=== PATIENT | female | born 1950 | race Caucasian/White ===

== ENCOUNTER 2020-12-11 14:50 | Observation (INO) ==
[2020-12-11] MEDS ORDERED: SODIUM CHLORIDE 0.9% 1000ML 1,000 ML IV ONE (15:00)
[2020-12-11] MEDS ORDERED: dilTIAZem HCl 5 MG/ML 5 ML VIAL IV STA ×2 (15:00→15:41)
--- NOTE | 2020-12-11 15:05 | Emergency Department Note ---
Impression & Plan Atrial flutter with rapid ventricular response, Substernal chest pain ED Provider Note Name: PHYLLIS SHARPE Age: 70 Sex: F Arrives Via: Ambulance Informant: Patient, GI Physician ED Provider: Evan De MD Chief Complaint: palpitations Impression: As Per Impressions Above Medical Decision Making: Pleasant 70 yr old female with history AFib which is unclear if Paroxysmal. She stopped her eliquis a few days ago in preparation for Colonoscopy this morning, though has been taking her other medications. Found to be Afib RVR and sent to ED for evaluation from endoscopy. Notes constant SOB which she attributes to her COPD though otherwise asymptomatic. EKG with aflutter RVR variable response. Given 2 rounds IV cardizem and NSS Bolus with improvement in HR, though still at times jumping to 120s. BP stable. While in ED developed some substernal chest pressure. Repeat EKG at that time unremarkable. Given persistent tachy and chest pain, I do feel that hospitalization warranted. Patient comfortable with this plan. Other labs unremarkable. Seems unlikely PE and given other more likely causes I do not feel CT A Chest emergently indicated. Held off on anticoagulation as plan is colonoscopy to be done if rate gets controlled and patient otherwise stable in am. Prior Medical Record and Triage/Nursing Notes reviewed by Me Additional history obtained from GI & Chart Differentials:Premature contractions, electrolyte abnormality, cardiac dysrhythmia, thyroid dysfunction, pulmonary embolism, infection, gastrointestinal, as well as other pathologies. Vital Signs: reviewed and remarkable for tachycardia Interventions: cardizem 10mg iv x 2, nss bolus Labs:Reviewed and remarkable for no significant abnormalities Imaging:See Below EKG:Per My Interpretation: Indication tachycardia: Aflutter RVR 146 bpm, qtc 451. No ischemia, no previous for comparison Cardiac/Tele Monitoring: Cardiac Monitoring: An Order was placed for continuous cardiac monitoring. The monitor shows a rate of 120 with a aflutter RVR rhythm. Consults:Hospitalist Plan: Disposition:Hospitalization. History of Present Illness:70 yr old female arrives for evaluation of afib. Patient notes that she was to have colonoscopy this morning and while at endo suite noted to be afib RVR. She denies any symptoms other than chronic SOB which she relates due to COPD. States unsure when she went in to afib, but that she doesn't thinks she is always in afib. She is on Eliquis usually but stopped this 3 days ago in preoperation for Colonoscopy. She has had no chest pain, syncope, noted palpitations, nausea, vomiting, back pain, rectal bleeding, urinary symptoms, leg swelling, rashes, bleeding/bruising, headache, neck pain nor other symptoms. Did do bowel prep overnight and took her morning medications other than Eliquis. ROS: See above HPI for pertinent positives & negatives. A total of 10 systems reviewed and were otherwise negative. Past Medical History:See Below Past Surgical History:See Below Family History:See Below Social History:See Below Home Medications:See Below Allergies:See Below Vitals:Blood Pressure: 143/106, Pulse 156, RR 16, T 36.4C, O2 98% on RA Physical Exam: GENERAL: Patient is tired appearing and in minimal distress. EYES: No scleral icterus, unremarkable pupils. ENT: Mucous membranes moist, no nasal congestion. NECK: No masses appreciated, nomeningismus, trachea is midline. RESPIRATORY: No dyspnea. Clear to auscultation and equal bilaterally. No wheeze, no rhonchi. CARDIOVASCULAR: Tachy/irregular.No murmurs, rubs, gallops appreciated. GASTROINTESTINAL: Abdomen soft, non-tender, no peritonitis.Bowel sounds positive.No masses appreciated. BACK: No midline tenderness, no CVA tenderness EXTREMITIES: Normal motion all extremities, no cyanosis, no edema. NEUROLOGIC: Alert and oriented, no acute motor or sensory deficits, no focal weakness, cranial nerves grossly intact. SKIN: No rash, no jaundice, no diaphoresis. PSYCH: Appropriate GCS: 15 ED Course: Times/Reassessments: stable, HR improving. Episode Substernal CP which shortly resolved, repeat EKG without ischemia Evan De MD Past Med/Surg History Medical History (Updated 12/12/20 @ 11:36 by Evan De MD) Arthritis COPD (chronic obstructive pulmonary disease) DX 2009 Encounter for pre-operative examination Grief counseling PARENTS BOTH WITHIN LAST YR Heart failure DX 2008 History of atrial flutter History of colon polyps HTN (hypertension) Low back problem ARTHRITIS Sleep apnea CPAP WITHOUT HUMIDIFIER SOB (shortness of breath) on exertion Surgical History History of cardiac cath 2019 - PRIOR TO CATARACT SX, DIDN'T PASS PHYSICAL EXAM - FOUND BLOCKAGE - NO STENT(S) 2009 - DX HEART FAILURE - FOUND BLOCKAGE - NO STENT(S) History of cardioversion History of colonoscopy History of laminectomy CERVICAL - LIMITED ROM History of left cataract surgery Family History Father Family history of esophageal cancer Other Family history of colon cancer Family history of stomach cancer Social History Smoking Status: Never smoker Cigarettes Per Day: 20; Hx Alcohol Use: Yes (I MIGHT HAVE 3 DRINKS A YR) Hx Substance Use: No Preferred Language: Estonian Communication Ability: Effective City Planning Aide Required: No Beliefs That Will Affect Care: None Current Living Situation: Family Current Living Situation Comment: DAUGHTER Feels Safe at Home: Yes Assistive Devices: CPAP and Glasses Allergies Allergies Allergy/AdvReac Type Severity Reaction Status Date / Time bee venom protein (honey bee) Allergy Unknown Anaphylaxis Verified 12/11/20 14:06 Beta-Blockers AdvReac Unknown SLEEPINESS Verified 12/11/20 14:06 (Beta-Adrenergic Bloc fentanyl AdvReac Unknown PROJECTILE Verified 12/11/20 14:06 VOMITING metoprolol AdvReac Unknown SLEEPINESS Verified 12/11/20 14:06 AND WEIGHT GAIN morphine AdvReac Unknown PROJECTILE Verified 12/11/20 14:06 VOMITING Home Meds Home Medications Medication Instructions Recorded Confirmed acetaminophen 500 mg capsule 1,000 mg PO QAM 11/14/20 12/11/20 apixaban 5 mg tablet (Eliquis) 5 mg PO BID 11/14/20 12/11/20 ascorbate calcium (vitamin C) 500 500 mg PO DAILY 11/14/20 12/11/20 mg tablet aspirin 81 mg tablet,delayed 81 mg PO DAILY 11/14/20 12/11/20 release (Adult Aspirin Regimen) atorvastatin 10 mg tablet (Lipitor) 10 mg PO QAM 11/14/20 12/11/20 biotin 10,000 mcg capsule 10,000 mcg PO DAILY 11/14/20 12/11/20 cholecalciferol (vitamin D3) 125 125 mcg PO DAILY 11/14/20 12/11/20 mcg (5,000 unit) capsule furosemide 20 mg tablet 20 mg PO QAM 11/14/20 12/11/20 losartan 100 mg tablet 100 mg PO QAM 11/14/20 12/11/20 multivitamin (Daily Multi-Vitamin) 1 tab PO BID 11/14/20 12/11/20 cetirizine 10 mg capsule (Allergy 10 mg PO QAM 12/04/20 12/11/20 Relief (cetirizine)) diphenhydramine 25 2 tab PO HS 12/04/20 12/11/20 mg-acetaminophen 500 mg tablet (Tylenol PM Extra Strength) epinephrine 0.3 mg/0.3 mL 0.3 mg IM UD PRN 12/04/20 12/11/20 injection, auto-injector fluticasone 250 mcg-salmeterol 50 1 inh INHALATION BID 12/04/20 12/11/20 mcg/dose blistr powdr for inhalation (Advair Diskus) melatonin 1 mg chewable tablet 10 mg PO HS 12/04/20 12/11/20 potassium chloride 10 mEq 10 meq PO QAM 12/04/20 12/11/20 capsule,extended release sodium,potassium,mag sulfates 17.5 177 ml PO UD PRN 12/04/20 12/11/20 gram-3.13 gram-1.6 gram oral soln (Suprep Bowel Prep Kit) diltiazem HCl 120 mg 120 mg PO QAM 12/11/20 12/11/20 capsule,extended release 24 hr Previous Rx's Medication Instructions Recorded albuterol sulfate 90 mcg/actuation 2 inh INHALATION Q4H PRN #8.5 g 11/14/20 aerosol inhaler umeclidinium 62.5 mcg/actuation 1 inh INHALATION DAILY #30 ea 11/14/20 blister powder for inhalation (Incruse Ellipta) Results & Data (ED) Vital Signs Vital Signs - 24 hr 12/11/20 14:55 12/11/20 15:02 12/11/20 15:15 Pulse Rate 132 H 132 H 135 H Pulse Rate [Left] Pulse Rate from SpO2 Sensor 128 H 148 H Pulse Rhythm Regular Pulse Rhythm [Left] Pulse Strength Normal Pulse Strength [Left] Respiratory Rate 19 14 24 Respiratory Effort / Characteristics Non-Labored Respiratory Depth Normal Respiratory Pattern Regular Blood Pressure 143/106 H 143/106 H 157/101 H Blood Pressure [Left Arm] Blood Pressure Mean 118 118 119 Blood Pressure Mean [Left Arm] Blood Pressure Position [Left Arm] Pulse Oximetry 98 97 97 Oxygen Delivery Method Room Air Room Air Room Air Sepsis Recent Fever Within 48 Hours No Sepsis New/Unexplained Change in Mental Status N/A Sepsis Action Taken by Nursing No Action Required 12/11/20 15:25 12/11/20 15:30 12/11/20 15:45 Pulse Rate 93 H 111 H Pulse Rate [Left] 117 H Pulse Rate from SpO2 Sensor 109 H 107 H Pulse Rhythm Pulse Rhythm [Left] Pulse Strength Pulse Strength [Left] Respiratory Rate 24 27 H 17 Respiratory Effort / Characteristics Non-Labored Respiratory Depth Normal Respiratory Pattern Regular Blood Pressure 172/125 H Blood Pressure [Left Arm] 150/99 H Blood Pressure Mean 140 Blood Pressure Mean [Left Arm] 116 Blood Pressure Position [Left Arm] Pulse Oximetry 96 96 98 Oxygen Delivery Method Room Air Room Air Room Air Sepsis Recent Fever Within 48 Hours Sepsis New/Unexplained Change in Mental Status Sepsis Action Taken by Nursing 12/11/20 15:49 12/11/20 16:00 12/11/20 16:15 Pulse Rate 89 96 H Pulse Rate [Left] 100 H Pulse Rate from SpO2 Sensor 90 107 H Pulse Rhythm Pulse Rhythm [Left] Regular Pulse Strength Pulse Strength [Left] Normal Respiratory Rate 19 14 15 Respiratory Effort / Characteristics Non-Labored Respiratory Depth Normal Respiratory Pattern Regular Blood Pressure 149/88 H Blood Pressure [Left Arm] 131/98 Blood Pressure Mean 108 Blood Pressure Mean [Left Arm] 109 Blood Pressure Position [Left Arm] Lying Pulse Oximetry 99 98 97 Oxygen Delivery Method Room Air Room Air Room Air Sepsis Recent Fever Within 48 Hours Sepsis New/Unexplained Change in Mental Status Sepsis Action Taken by Nursing 12/11/20 16:30 12/11/20 16:45 12/11/20 17:00 Pulse Rate 109 H 122 H 116 H Pulse Rate [Left] Pulse Rate from SpO2 Sensor 112 H 128 H 116 H Pulse Rhythm Pulse Rhythm [Left] Pulse Strength Pulse Strength [Left] Respiratory Rate 16 21 19 Respiratory Effort / Characteristics Respiratory Depth Respiratory Pattern Blood Pressure 163/104 H 183/77 H Blood Pressure [Left Arm] Blood Pressure Mean 123 112 Blood Pressure Mean [Left Arm] Blood Pressure Position [Left Arm] Pulse Oximetry 98 98 96 Oxygen Delivery Method Room Air Room Air Sepsis Recent Fever Within 48 Hours Sepsis New/Unexplained Change in Mental Status Sepsis Action Taken by Nursing 12/11/20 17:11 12/11/20 17:15 12/11/20 17:30 Pulse Rate 128 H 124 H Pulse Rate [Left] 124 H Pulse Rate from SpO2 Sensor Pulse Rhythm Pulse Rhythm [Left] Pulse Strength Pulse Strength [Left] Respiratory Rate 15 22 17 Respiratory Effort / Characteristics Non-Labored Spontaneous Respiratory Depth Normal Respiratory Pattern Blood Pressure Blood Pressure [Left Arm] 160/111 H Blood Pressure Mean Blood Pressure Mean [Left Arm] 127 Blood Pressure Position [Left Arm] Pulse Oximetry 93 99 Oxygen Delivery Method Room Air Sepsis Recent Fever Within 48 Hours Sepsis New/Unexplained Change in Mental Status Sepsis Action Taken by Nursing Laboratory Data Result diagrams: 12/12/20 05:42 12/12/20 05:42 Administered Medications Acetaminophen (Acetaminophen 500 Mg Tab) 1,000 mg PO [facility] Stop: 01/11/21 08:59 Last Admin: 12/12/20 09:28 Dose: Not Given Documented by: [id number] Atorvastatin Calcium (Atorvastatin 10 Mg Tab) [facility] Stop: 01/11/21 08:59 Last Admin: 12/12/20 09:26 Dose: 10 mg Documented by: [id number] Cetirizine HCl (Cetirizine Hcl 10 Mg Tablet) 10 mg PO [facility] Stop: 01/11/21 08:59 Last Admin: 12/12/20 09:26 Dose: 10 mg Documented by: [id number] Fluticasone/Vilanterol (Fluticasone/Vilanterol 100/25mcg 14 Puffs/Inhaler) 1 puffs INH DAILY [facility]; Protocol Stop: 01/11/21 08:59 Last Admin: 12/12/20 09:31 Dose: Not Given Documented by: [id number] Losartan Potassium (Losartan Potassium 50 Mg Tab) [facility] [place] Stop: 01/11/21 08:59 Last Admin: 12/12/20 09:27 Dose: 100 mg Documented by: [id number] Umeclidinium Rawlings (Umeclidinium Rawlings 62.5mcg/Blister 7 Puffs/Inhaler) 1 puffs INH DAILY [facility] Stop: 01/11/21 08:59 Last Admin: 12/12/20 09:43 Dose: 1 puffs Documented by: [id number] Discontinued Medications Diltiazem HCl (Diltiazem Hcl 5 Mg/Ml 5 Ml Vial) 10 mg IV NOW STA Stop: 12/11/20 15:01 Last Admin: 12/11/20 15:15 Dose: 10 mg Documented by: [id number] Cosigned by: [id number] Diltiazem HCl (Diltiazem Hcl 5 Mg/Ml 5 Ml Vial) 10 mg IV NOW STA Stop: 12/11/20 15:42 Last Admin: 12/11/20 15:44 Dose: 10 mg Documented by: [id number] Cosigned by: [id number] Diltiazem HCl (Diltiazem Hcl 60 Mg Tab) 60 mg PO ONCE ONE Stop: 12/11/20 17:21 Last Admin: 12/11/20 18:06 Dose: 60 mg Documented by: [id number] Diltiazem HCl (Diltiazem Hcl 60 Mg Tab) 60 mg PO Q6H [facility] Stop: 01/11/21 00:00 Last Admin: 12/12/20 06:02 Dose: 60 mg Documented by: [id number] Admin: 12/12/20 00:13 Dose: 60 mg Documented by: [id number] Diltiazem HCl (Diltiazem Hcl 120 Mg Capcr) 120 mg PO QAM [facility] Stop: 01/11/21 08:59 Last Admin: 12/12/20 09:34 Dose: 120 mg Documented by: [id number] Diltiazem HCl (Diltiazem Hcl 180 Mg Capcr) 180 mg PO 0945 ONE Stop: 12/12/20 09:46 Last Admin: 12/12/20 09:46 Dose: 180 mg Documented by: [id number] Sodium Chloride (Nss 1000ml) 1,000 mls @ 999 mls/hr IV .Q1H1M ONE Stop: 12/11/20 16:00 Last Infusion: 12/11/20 16:12 Dose: 0 mls/hr Documented by: [id number] Admin: 12/11/20 15:10 Dose: 999 mls/hr Documented by: [id number] Lactated Ringer's (Lr) 1,000 mls @ 100 mls/hr IV .Q10H ONE Stop: 12/12/20 09:59 Last Infusion: 12/12/20 11:02 Dose: 0 mls/hr Documented by: [id number] Admin: 12/12/20 00:15 Dose: 100 mls/hr Documented by: [id number] Nitroglycerin (Nitroglycerin Sl 0.4 Mg/Tab Tab) 0.4 mg SL NOW STA Stop: 12/11/20 16:56 Last Admin: 12/11/20 17:11 Dose: 0.4 mg Documented by: [id number] Discharge Plan Visit Data Chief Complaint: Tachycardia Stated Complaint: TACHYCARDIA Discharge Problem: Atrial flutter with rapid ventricular response, Substernal chest pain Patient Disposition: Admitted As Inpatient Discharge Instructions Interventions: ED Discharge Assessment Last Done: 12/11/20 22:25
[2020-12-11 15:26] LABS: Basophils # (auto) 0.05 K/uL (0-0.2); Basophils % (auto) 0.7 %; Eosinophils # (auto) 0.19 K/uL (0-0.5); Eosinophils % (auto) 2.5 %; Hemoglobin 15.4 g/dL (12.0-16.0); Immature Granulocytes # (auto) 0.01 K/uL (0.00-0.02); Immature Granulocytes % (auto) 0.1 %; Lymphocytes # (auto) 2.46 K/uL (1.2-3.4); Lymphocytes % (auto) 32.7 %; Mean Corpuscular Hemoglobin 30.4 pg (25-34); Mean Corpuscular Hgb Conc 32.8 g/dL (32-36); Mean Corpuscular Volume 92.9 fL (80-100); Mean Platelet Volume 10.9 fL (7.4-10.4); Monocytes # (auto) 0.48 K/uL (0.11-0.59); Monocytes % (auto) 6.4 %; Neutrophils # (auto) 4.33 K/uL (1.4-6.5); Neutrophils % (auto) 57.6 %; Platelet Count 268 K/uL (130-400); RDW Coefficient of Variation 13.1 % (11.5-14.5); RDW Standard Deviation 44.4 fL (36.4-46.3); Red Blood Count 5.06 M/uL (4.2-5.4); White Blood Count 7.52 K/uL (4.8-10.8)
[2020-12-11 15:43] LABS: INR 1.1 (0.9-1.1)
[2020-12-11 15:45] LABS: BUN Creatinine Ratio 15.3 (10-20); Blood Urea Nitrogen 12 mg/dl (7-18); Calcium 9.6 mg/dl (8.5-10.1); Carbon Dioxide 26 mmol/L (21-32); Chloride 105 mmol/L (98-107); Creatinine Clr Calc Pharmacy 82.8 ml/min; Est GFR (Non-African American) 77.7 ml/min; Glucose 106 mg/dl (70-99); Magnesium 2.6 mg/dl (1.8-2.4); Sodium 138 mmol/L (136-145)
--- NOTE | 2020-12-11 15:47 | XRay Report ---
XR chest 1V portable HISTORY: 70 years-old Female afib acute atrial fibrillation COMPARISON: Chest CT 10/14/2020 TECHNIQUE: Portable AP view of the chest FINDINGS: Cardiac silhouette is mildly enlarged. Calcified plaque of the thoracic aorta. Suggestion of mild emp hysema. Mild chronic interstitial coarsening. No pneumothorax, pleural effusion, airspace consolidati on or overt pulmonary edema. No acute fracture. Left shoulder rotator cuff calcific tendinosis. Degen erative changes of the shoulders and spine. IMPRESSION: No acute process. ACT 112: Negative or not required by law. The above report was generated using voice recognition software. It may contain grammatical, syntax o r spelling errors. Electronically signed by: Ilya Sparks M.D. 12/11/2020 3:45 PM
[2020-12-11 15:50] LABS: Troponin I < 0.015 ng/ml (0-0.045)
[2020-12-11] MEDS ORDERED: NITROGLYCERIN SL 0.4 MG/TAB TAB SL STA (16:55)
[2020-12-11] MEDS ORDERED: dilTIAZem HCl 60 MG TAB PO ONE (17:20)
--- NOTE | 2020-12-11 17:51 | History & Physical Report ---
Date of Service December 11, 2020 Assessment & Plan (1) Atrial flutter: Plan: Afib/Aflutter- predominantly atrial flutter at this time, no ectopy- acute RVR- ECG in September 27 was NSR - RVR secondary to hypovolemia with bowel prep ? - Responded to IV Diltiazem - Continue Diltiazem PO 120mg XR- 60mg IR Cardizem x1 now - PRN Dilt for HR >120 on floor - Mag 2.4 K 4.0 - Continue Apixaban following colonoscopy- if unable to perform colonoscopy, restart in AM - Apixaban recently added Sep/Oct time frame (2) Chest discomfort: Plan: Chest pressure- unsure if related to patricia or not - angina vs. anxiety vs. topical chest pain - relieved with 1 NTG SL - Follow Troponin I and ECGs (3) CAD (coronary artery disease): Plan: 30-40% CX, 20% prox LAD, 10-15% luminal change to left main - Continue Dilt- previous intolerance to BB - Continue ASA - Continue Atorvastatin 10mg (4) Heart failure: Plan: HFpEF- Grade I diastolic dysfunction - Hold lasix at this time- LR overnight - restart when euvolemic - As above - ECHO 10/28- EF 55%, Mild cocentric LV, no RWMA (5) COPD with emphysema: Plan: COPD B/C - continue albuterol and Incruse - PFTs not available- will be performed at next pulm visit from recent Note in Nov 27 (6) HLD (hyperlipidemia): Plan: As above (7) DIANDRA (obstructive sleep apnea): Plan: Does not wear CPAP as her machine was recalled - defers use here (8) Morbid obesity: Plan: Would benefit from weight loss to reduce pulmonary and cardiac morbidity in the senior care. BMI 45 History of Present Illness Primary Care Provider: Amy Giordano MD 70 YOF with past medical history of: HTN, CHF, COPD, CAD with cardiac cath (30- 40% CX, 20% prox LAD, 10-15% luminal change to left main, LVEDP 12mm), aflutter/afib with cardioversion in 2008/2012, with septal ablation in 2014), manic/depressive episode 2001, COPD. Patient was recently started on Eliquis and Cardizem for her Afib/flutter. She has recently transitioned her care to this area to include her PCP([facility]), Cardiology ([facility]), and Pulmonary [facility]. Patient was coming in today for routine Colonoscopy following bowel prep overnight and holding her Eliquis for 72 hours. Upon check in she was noted to have HR 150s-170s she was then referred to the EMD. In the EMD she had an ECG done and CXR nd routine labs to include Troponin I. Her troponin I was negative and her electrolytes including MG are within acceptable cardiac ranges. She received 1 liter of saline and Diltiazem 10mg IV x2 with decrease in her HR to 90-110s. Upon my evaluation she was having some substernal tightness in her chest- she was unsure if this was pressure or her patricia so she received 1 nitroglycerin SL, she was also given 60mg of oral Cardizem immediate release for HR 110-120s. Patient also endorses that she is anxious about getting her colonoscopy and helping her daughter at home with medical diagnoses. Patient will be admitted for rate control, hemodynamic monitoring, trending of ECG and Troponin I, clears until midnight and re-attempt at colonoscopy tomorrow pending stability overnight. Cardiology consulted for further evaluation and assistance if needed for her rate control and chest tightness. Her COVID test on admission: NEGATIVE Allergies Allergy/AdvReac Type Severity Reaction Status Date / Time bee venom protein (honey bee) Allergy Unknown Anaphylaxis Verified 12/11/20 14:06 Beta-Blockers AdvReac Unknown SLEEPINESS Verified 12/11/20 14:06 (Beta-Adrenergic Bloc fentanyl AdvReac Unknown PROJECTILE Verified 12/11/20 14:06 VOMITING metoprolol AdvReac Unknown SLEEPINESS Verified 12/11/20 14:06 AND WEIGHT GAIN morphine AdvReac Unknown PROJECTILE Verified 12/11/20 14:06 VOMITING Home Medications Medication Instructions Recorded Confirmed Type acetaminophen 500 mg capsule 1,000 mg PO QAM 11/14/20 12/11/20 History albuterol sulfate 90 mcg/actuation 2 inh INHALATION Q4H PRN #8.5 g 11/14/20 12/11/20 Rx aerosol inhaler apixaban 5 mg tablet (Eliquis) 5 mg PO BID 11/14/20 12/11/20 History ascorbate calcium (vitamin C) 500 500 mg PO DAILY 11/14/20 12/11/20 History mg tablet aspirin 81 mg tablet,delayed 81 mg PO DAILY 11/14/20 12/11/20 History release (Adult Aspirin Regimen) atorvastatin 10 mg tablet (Lipitor) 10 mg PO QAM 11/14/20 12/11/20 History biotin 10,000 mcg capsule 10,000 mcg PO DAILY 11/14/20 12/11/20 History cholecalciferol (vitamin D3) 125 125 mcg PO DAILY 11/14/20 12/11/20 History mcg (5,000 unit) capsule furosemide 20 mg tablet 20 mg PO QAM 11/14/20 12/11/20 History losartan 100 mg tablet 100 mg PO QAM 11/14/20 12/11/20 History multivitamin (Daily Multi-Vitamin) 1 tab PO BID 11/14/20 12/11/20 History umeclidinium 62.5 mcg/actuation 1 inh INHALATION DAILY #30 ea 11/14/20 12/11/20 Rx blister powder for inhalation (Incruse Ellipta) cetirizine 10 mg capsule (Allergy 10 mg PO QAM 12/04/20 12/11/20 History Relief (cetirizine)) diphenhydramine 25 2 tab PO HS 12/04/20 12/11/20 History mg-acetaminophen 500 mg tablet (Tylenol PM Extra Strength) epinephrine 0.3 mg/0.3 mL 0.3 mg IM UD PRN 12/04/20 12/11/20 History injection, auto-injector fluticasone 250 mcg-salmeterol 50 1 inh INHALATION BID 12/04/20 12/11/20 History mcg/dose blistr powdr for inhalation (Advair Diskus) melatonin 1 mg chewable tablet 10 mg PO HS 12/04/20 12/11/20 History potassium chloride 10 mEq 10 meq PO QAM 12/04/20 12/11/20 History capsule,extended release sodium,potassium,mag sulfates 17.5 177 ml PO UD PRN 12/04/20 12/11/20 History gram-3.13 gram-1.6 gram oral soln (Suprep Bowel Prep Kit) diltiazem HCl 120 mg 120 mg PO QAM 12/11/20 12/11/20 History capsule,extended release 24 hr Past Med/Surg History Medical History Arthritis COPD (chronic obstructive pulmonary disease) DX 2008 Grief counseling PARENTS BOTH WITHIN LAST YR Heart failure DX 2008 History of atrial flutter History of colon polyps HTN (hypertension) Low back problem ARTHRITIS Sleep apnea CPAP WITHOUT HUMIDIFIER SOB (shortness of breath) on exertion Surgical History History of cardiac cath 2019 - PRIOR TO CATARACT SX, DIDN'T PASS PHYSICAL EXAM - FOUND BLOCKAGE - NO STENT(S) 2008 - DX HEART FAILURE - FOUND BLOCKAGE - NO STENT(S) History of cardioversion History of colonoscopy History of laminectomy CERVICAL - LIMITED ROM History of left cataract surgery Family History Father Family history of esophageal cancer Other Family history of colon cancer Family history of stomach cancer Social History Smoking Status: Never smoker Cigarettes Per Day: 20; Hx Alcohol Use: Yes (I MIGHT HAVE 3 DRINKS A YR) Preferred Language: Azeri Communication Ability: Effective Tea Room Manager Required: No Beliefs That Will Affect Care: None Current Living Situation Comment: DAUGHTER Feels Safe at Home: Yes Assistive Devices: CPAP and Glasses Review of Systems Review of Systems: REVIEW OF SYSTEMS: Constitutional: No fever, sweats or chills Eyes: No diplopia, no worsening or blurred vision ENT: normal hearing, no trouble swallowing Respiratory: (+) dyspnea on exertion, No cough, sputum, dyspnea at rest or orthopnea Cardiovascular: (+) tightness, NO chest pain, palpitations Abdomen: No pain, nausea, vomiting, diarrhea or constipation Musculoskeletal: No joint pain, calf pain, swelling Neurologic: No weakness, numbness/tingling, or balance problems Psychiatric: (+) anxiety or depression Skin: No rash or itch Physical Exam Physical Exam: PHYSICAL EXAM: General: awake, alert, no apparent distress Head: Normocephalic, atraumatic ENT: PERRL, EOMI, no pharyngeal exudate, mucous membranes moist Neuro: AAO x 3, speech clear and appropriate, strength intact bilaterally 5/5, sensation intact and equal all extremities and dermatomes, no pronator drift Chest: equal rise and fall of the chest, no accessory muscle use, no heaves or thrills, decreased in bases, on room air, Cardiac: chest tightness not reproducible substernal, no change with inspiration or with movement, irregular rate and rhythm, telemetry reviewed- aflutter, skin warm dry, cap refill <3 seconds, peripheral pulses +2 no JVD, no murmur, no edema GI: NABS x 4 quadrants, soft, nontender to palpation, no rebound, guarding or tenderness : Spontaneously voiding, no pain, no CVA tenderness, Extremities: Normal inspection, no peripheral edema or erythema, calfs nontender to palpation Psych: Normal mood and affect Skin: no rash or erythema Results & Data Results & Data ([facility]) Vital Signs (Past 12 Hours) Vital Signs Pulse Pulse Resp BP BP Pulse Ox 12/11/20 17:11 124 H 15 160/111 H 93 12/11/20 16:45 122 H 21 183/77 H 98 12/11/20 16:30 109 H 16 163/104 H 98 12/11/20 16:15 96 H 15 97 12/11/20 16:00 89 14 149/88 H 98 12/11/20 15:49 100 H 19 131/98 99 12/11/20 15:45 111 H 17 172/125 H 98 12/11/20 15:30 93 H 27 H 96 12/11/20 15:25 117 H 24 150/99 H 96 12/11/20 15:15 135 H 24 157/101 H 97 12/11/20 15:02 132 H 14 143/106 H 97 12/11/20 14:55 132 H 19 143/106 H 98 Laboratory Results Abnormal lab results 12/11/20 12/11/20 Range/Units Unknown Unknown MPV 10.9 H (7.4-10.4) fL Glucose 106 H (70-99) mg/dl Magnesium 2.6 H (1.8-2.4) mg/dl Diagnostic Findings Chest X-Ray 12/11/20 15:01 XR chest 1V portable HISTORY: 70 years-old Female afib acute atrial fibrillation COMPARISON: Chest CT 10/14/2020 TECHNIQUE: Portable AP view of the chest FINDINGS: Cardiac silhouette is mildly enlarged. Calcified plaque of the thoracic aorta. Suggestion of mild emphysema. Mild chronic interstitial coarsening. No p neumothorax, pleural effusion, airspace consolidation or overt pulmonary edema. No acute fracture. Left shoulder rotator cuff calcific tendinosis. Degenerative changes of the shoulders and spine. IMPRESSION: No acute process. ACT 112: Negative or not required by law. The above report was generated using voice recognition software. It may contain grammatical, syntax or spelling errors. Electronically signed by: Ilya Sparks M.D. 12/11/2020 3:45 PM Medications Administered Home Medications acetaminophen 500 mg capsule 1,000 mg PO QAM 11/14/20 [History Confirmed 12/11/20] albuterol sulfate 90 mcg/actuation aerosol inhaler 2 inh INHALATION Q4H PRN #8.5 g 11/14/20 [Rx Confirmed 12/11/20] apixaban 5 mg tablet (Eliquis) 5 mg PO BID 11/14/20 [History Confirmed 12/11/20] ascorbate calcium (vitamin C) 500 mg tablet 500 mg PO DAILY 11/14/20 [History Confirmed 12/11/20] aspirin 81 mg tablet,delayed release (Adult Aspirin Regimen) 81 mg PO DAILY 11/14/20 [History Confirmed 12/11/20] atorvastatin 10 mg tablet (Lipitor) 10 mg PO QAM 11/14/20 [History Confirmed 12/11/20] biotin 10,000 mcg capsule 10,000 mcg PO DAILY 11/14/20 [History Confirmed 12/11/20] cholecalciferol (vitamin D3) 125 mcg (5,000 unit) capsule 125 mcg PO DAILY 11/14/20 [History Confirmed 12/11/20] furosemide 20 mg tablet 20 mg PO QAM 11/14/20 [History Confirmed 12/11/20] losartan 100 mg tablet 100 mg PO QAM 11/14/20 [History Confirmed 12/11/20] multivitamin (Daily Multi-Vitamin) 1 tab PO BID 11/14/20 [History Confirmed ] umeclidinium 62.5 mcg/actuation blister powder for inhalation (Incruse Ellipta) 1 inh INHALATION DAILY #30 ea 11/14/20 [Rx Confirmed 12/11/20] cetirizine 10 mg capsule (Allergy Relief (cetirizine)) 10 mg PO QAM 12/04/20 [History Confirmed 12/11/20] diphenhydramine 25 mg-acetaminophen 500 mg tablet (Tylenol PM Extra Strength) 2 tab PO HS 12/04/20 [History Confirmed 12/11/20] epinephrine 0.3 mg/0.3 mL injection, auto-injector 0.3 mg IM UD PRN 12/04/20 [History Confirmed 12/11/20] fluticasone 250 mcg-salmeterol 50 mcg/dose blistr powdr for inhalation (Advair Diskus) 1 inh INHALATION BID 12/04/20 [History Confirmed 12/11/20] melatonin 1 mg chewable tablet 10 mg PO HS 12/04/20 [History Confirmed 12/11/20] potassium chloride 10 mEq capsule,extended release 10 meq PO QAM 12/04/20 [History Confirmed 12/11/20] sodium,potassium,mag sulfates 17.5 gram-3.13 gram-1.6 gram oral soln (Suprep Bowel Prep Kit) 177 ml PO UD PRN 12/04/20 [History Confirmed 12/11/20] diltiazem HCl 120 mg capsule,extended release 24 hr 120 mg PO QAM 12/11/20 [History Confirmed 12/11/20] Discontinued Medications Diltiazem HCl (Diltiazem Hcl 5 Mg/Ml 5 Ml Vial) 10 mg IV NOW STA Stop: 12/11/20 15:01 Last Admin: 12/11/20 15:15 Dose: 10 mg Documented by: [id number] Cosigned by: [id number] Diltiazem HCl (Diltiazem Hcl 5 Mg/Ml 5 Ml Vial) 10 mg IV NOW STA Stop: 12/11/20 15:42 Last Admin: 12/11/20 15:44 Dose: 10 mg Documented by: [id number] Cosigned by: [id number] Diltiazem HCl (Diltiazem Hcl 60 Mg Tab) 60 mg PO ONCE ONE Stop: 12/11/20 17:21 Last Admin: 12/11/20 18:06 Dose: 60 mg Documented by: [id number] Sodium Chloride (Nss 1000ml) 1,000 mls @ 999 mls/hr IV .Q1H1M ONE Stop: 12/11/20 16:00 Last Infusion: 12/11/20 16:12 Dose: 0 mls/hr Documented by: [id number] Admin: 12/11/20 15:10 Dose: 999 mls/hr Documented by: [id number] Nitroglycerin (Nitroglycerin Sl 0.4 Mg/Tab Tab) 0.4 mg SL NOW STA Stop: 12/11/20 16:56 Last Admin: 12/11/20 17:11 Dose: 0.4 mg Documented by: [id number] ECG Additional Comments: Atrial flutter with variable A-V block Septal infarct , age undetermined Abnormal ECG When compared with ECG of 11-DEC-2020 14:24, Atrial flutter has replaced Atrial fibrillation Code Status & VTE Plan Code Status CODE: DNR/DNI VTE: SCDS, VTE Prophylaxis Plan VTE Prophylaxis will be ordered: Yes Supervising Physician Co-Signing Physician Notes Attending Attestation & Admission Note: Pt seen/examined, chart reviewed, care plan d/w APRISA Branham. I agree with the chaidez components of his documentation. Pleasant 70yo female with known h/o a.flutter/fib - recently established care with [facility] here in [place] - presented today for routine colonoscopy in our endoscopy suite. She prepped yesterday and has been holding her Eliquis for 3 days. Upon presentation today was in rapid a.flutter. She was sent to the ER for management. During the ER visit she complained of chest pain briefly. This resolved and has not recurred. She denies any recent chest pain or dyspnea at home. I contacted [facility] and they report that she was in NSR during her office visit about 2 weeks ago as well as another visit about 4-5 weeks ago. Thus, her a.flutter is paroxysmal. PMH/PSH/allergies/meds/sochx/famhx - reviewed Vitals - tachy, BP high, O2 sats wnl gen - NAD, pleasant; obese mouth - MMM neck - no JVD heart - irregular, tachy, s1 s2, no murmur lungs - cta b/l abd - softly distended, BS+, NT ext - no edema, pulses 2+ b/l labs reviewed EKG - my reading a.flutter with variable AV block, tachycardic A/P: Paroxysmal atrial flutter with RVR - improving s/p several doses of IV diltiazem followed by PO diltiazem. Chest pain - 2nd to rapid atrial flutter ? ischemic ? other ? For a flutter - typically takes 120mg daily of cardizem CD. Will increase her CCB dose - use 60mg q6h of IR cardizem. If a flutter proves difficult to rate control with the above - consider addition of beta masoud. Agree w/ [facility] consult. Hold eliquis. s/p prep for colonoscopy - hopefully she is hemodynamically stable tomorrow with controlled aflutter to allow colonoscopy on 12/12. Chest pain - serial troponins. Alton Vicente MD [facility] Care Time/CCT Total # of Minutes Spent Total Time Spent with Patient: Total time spent is greater than 50% in coordination of care (as documented) at patient's floor/unit and/or counseling patient: Coding Level of Care Code 38079 Initial Inpt Care Lvl 3 Diagnoses Heart failure I50.9 Atrial flutter I48.92 Morbid obesity E66.01 COPD with emphysema J43.9 CAD (coronary artery disease) I25.10 HLD (hyperlipidemia) E78.5 DIANDRA (obstructive sleep apnea) G47.33 Chest discomfort R07.89
[2020-12-11] MEDS ORDERED: dilTIAZem HCl 5 MG/ML 5 ML VIAL IV PRN (18:33)
[2020-12-12] MEDS ORDERED: ALBUTEROL HFA 8 GM INHALER INH PRN
[2020-12-12] MEDS ORDERED: LACTATED RINGER'S 1,000 ML IV ONE
[2020-12-12] MEDS: dilTIAZem HCl 60 MG TAB PO SCH ×2 (00:13→06:02)
[2020-12-12 06:09] LABS: Basophils # (auto) 0.04 K/uL (0-0.2); Basophils % (auto) 0.6 %; Eosinophils # (auto) 0.17 K/uL (0-0.5); Eosinophils % (auto) 2.3 %; Hematocrit (blood only) 44.8 % (37-47); Hemoglobin 14.8 g/dL (12.0-16.0); Immature Granulocytes # (auto) 0.01 K/uL (0.00-0.02); Immature Granulocytes % (auto) 0.1 %; Lymphocytes # (auto) 2.23 K/uL (1.2-3.4); Lymphocytes % (auto) 30.8 %; Mean Corpuscular Hemoglobin 30.5 pg (25-34); Mean Corpuscular Volume 92.2 fL (80-100); Mean Platelet Volume 10.9 fL (7.4-10.4); Monocytes # (auto) 0.43 K/uL (0.11-0.59); Monocytes % (auto) 5.9 %; Neutrophils # (auto) 4.37 K/uL (1.4-6.5); Neutrophils % (auto) 60.3 %; Platelet Count 251 K/uL (130-400); RDW Coefficient of Variation 12.9 % (11.5-14.5); RDW Standard Deviation 43.5 fL (36.4-46.3); Red Blood Count 4.86 M/uL (4.2-5.4); White Blood Count 7.25 K/uL (4.8-10.8)
[2020-12-12 06:47] LABS: BUN Creatinine Ratio 15.1 (10-20); Calcium 8.9 mg/dl (8.5-10.1); Creatinine Clr Calc Pharmacy 108.1 ml/min; Est GFR (African American) 106.9 ml/min; Est GFR (Non-African American) 92.2 ml/min; Magnesium 2.3 mg/dl (1.8-2.4); Potassium 3.7 mmol/L (3.5-5.1)
--- NOTE | 2020-12-12 07:55 | Electrocardiogram Report ---
Test Reason : Blood Pressure : / mmHG Vent. Rate : 101 BPM Atrial Rate : 359 BPM P-R Int : 000 ms QRS Dur : 080 ms QT Int : 354 ms P-R-T Axes : 000 052 015 degrees QTc Int : 459 ms Atrial fibrillation with rapid ventricular response Septal infarct , age undetermined Abnormal ECG When compared with ECG of 11-DEC-2020 14:24, No significant change Confirmed by Abel Aguillon ([id number]) on 12/12/2020 7:54:49 AM Referred By: Nina Graves Confirmed By:Abel Aguillon
[2020-12-12] MEDS ORDERED: LOSARTAN POTASSIUM 50 MG TAB PO SCH (09:00)
[2020-12-12] MEDS ORDERED: UMECLIDINIUM BROMIDE 62.5MCG/BLISTER 7 PUFFS/INHALER INH SCH (09:00)
[2020-12-12] MEDS ORDERED: ATORVASTATIN 10 MG TAB PO SCH (09:00)
[2020-12-12] MEDS ORDERED: CETIRIZINE HCL 10 MG TABLET PO SCH (09:00)
[2020-12-12] MEDS ORDERED: ACETAMINOPHEN 500 MG TAB PO SCH (09:00)
[2020-12-12] MEDS ORDERED: FLUTICASONE/VILANTEROL 100/25MCG 14 PUFFS/INHALER INH SCH (09:00)
--- NOTE | 2020-12-12 09:23 | Cardiology Consultation ---
Date of Consultation December 12, 2020 History of Present Illness Reason for Consultation: Asymptomatic atrial flutter with a rapid ventricular response Attending Physician: Denzel Henry MD History of Present Illness Patient was admitted to the hospital with atrial flutter and rapid ventricular response. She was asymptomatic she was seen for an outpatient colonoscopy and then sent to the emergency room when her heart rate was fast in the 150s. She had some chest discomfort which sounds epigastric in nature. She has any shortness of breath. She is unaware of any palpitations or fluttering. She has a light his dizziness presumed syncope. She denies any increasing shortness of breath and atrial flutter. In fact she describes she will even know that she was in flutter. She sleeps with her CPAP on a regular basis she denies any worsening lower extremity edema. She is compliant with her anticoagulation which was stopped 3 days prior to her planned colonoscopy. The rest of complete her systems otherwise negative Allergies Allergy/AdvReac Type Severity Reaction Status Date / Time bee venom protein (honey bee) Allergy Unknown Anaphylaxis Verified 12/11/20 14:06 Beta-Blockers AdvReac Unknown SLEEPINESS Verified 12/11/20 14:06 (Beta-Adrenergic Bloc fentanyl AdvReac Unknown PROJECTILE Verified 12/11/20 14:06 VOMITING metoprolol AdvReac Unknown SLEEPINESS Verified 12/11/20 14:06 AND WEIGHT GAIN morphine AdvReac Unknown PROJECTILE Verified 12/11/20 14:06 VOMITING Home Medications Medication Instructions Recorded Confirmed Type acetaminophen 500 mg capsule 1,000 mg PO QAM 11/14/20 12/11/20 History albuterol sulfate 90 mcg/actuation 2 inh INHALATION Q4H PRN #8.5 g 11/14/20 12/11/20 Rx aerosol inhaler apixaban 5 mg tablet (Eliquis) 5 mg PO BID 11/14/20 12/11/20 History ascorbate calcium (vitamin C) 500 500 mg PO DAILY 11/14/20 12/11/20 History mg tablet aspirin 81 mg tablet,delayed 81 mg PO DAILY 11/14/20 12/11/20 History release (Adult Aspirin Regimen) atorvastatin 10 mg tablet (Lipitor) 10 mg PO QAM 11/14/20 12/11/20 History biotin 10,000 mcg capsule 10,000 mcg PO DAILY 11/14/20 12/11/20 History cholecalciferol (vitamin D3) 125 125 mcg PO DAILY 11/14/20 12/11/20 History mcg (5,000 unit) capsule furosemide 20 mg tablet 20 mg PO QAM 11/14/20 12/11/20 History losartan 100 mg tablet 100 mg PO QAM 11/14/20 12/11/20 History multivitamin (Daily Multi-Vitamin) 1 tab PO BID 11/14/20 12/11/20 History umeclidinium 62.5 mcg/actuation 1 inh INHALATION DAILY #30 ea 11/14/20 12/11/20 Rx blister powder for inhalation (Incruse Ellipta) cetirizine 10 mg capsule (Allergy 10 mg PO QAM 12/04/20 12/11/20 History Relief (cetirizine)) diphenhydramine 25 2 tab PO HS 12/04/20 12/11/20 History mg-acetaminophen 500 mg tablet (Tylenol PM Extra Strength) epinephrine 0.3 mg/0.3 mL 0.3 mg IM UD PRN 12/04/20 12/11/20 History injection, auto-injector fluticasone 250 mcg-salmeterol 50 1 inh INHALATION BID 12/04/20 12/11/20 History mcg/dose blistr powdr for inhalation (Advair Diskus) melatonin 1 mg chewable tablet 10 mg PO HS 12/04/20 12/11/20 History potassium chloride 10 mEq 10 meq PO QAM 12/04/20 12/11/20 History capsule,extended release sodium,potassium,mag sulfates 17.5 177 ml PO UD PRN 12/04/20 12/11/20 History gram-3.13 gram-1.6 gram oral soln (Suprep Bowel Prep Kit) diltiazem HCl 120 mg 120 mg PO QAM 12/11/20 12/11/20 History capsule,extended release 24 hr Patient History Medical History Arthritis COPD (chronic obstructive pulmonary disease) DX 2009 Grief counseling PARENTS BOTH WITHIN LAST YR Heart failure DX 2008 History of atrial flutter History of colon polyps HTN (hypertension) Low back problem ARTHRITIS Sleep apnea CPAP WITHOUT HUMIDIFIER SOB (shortness of breath) on exertion Surgical History History of cardiac cath 2020 - PRIOR TO CATARACT SX, DIDN'T PASS PHYSICAL EXAM - FOUND BLOCKAGE - NO STENT(S) 2009 - DX HEART FAILURE - FOUND BLOCKAGE - NO STENT(S) History of cardioversion History of colonoscopy History of laminectomy CERVICAL - LIMITED ROM History of left cataract surgery Family History Father Family history of esophageal cancer Other Family history of colon cancer Family history of stomach cancer Social History Smoking Status: Never smoker Cigarettes Per Day: 20; Hx Alcohol Use: Yes (I MIGHT HAVE 3 DRINKS A YR) Hx Substance Use: No Preferred Language: Ghanaian Communication Ability: Effective Instructional Material Director Required: No Beliefs That Will Affect Care: None Current Living Situation: Family Current Living Situation Comment: DAUGHTER Feels Safe at Home: Yes Assistive Devices: CPAP and Glasses Results & Data ([facility]) Vital Signs (Past 12 Hours) Vital Signs Temp Pulse Pulse Resp BP BP Pulse Ox 12/12/20 07:46 97 H 12/12/20 07:41 36.5 C 102 H 20 141/76 H 93 12/12/20 04:16 36.4 C L 88 16 128/66 96 12/12/20 01:11 117 H 12/12/20 00:36 36.4 C L 107 H 16 154/67 H 97 12/11/20 22:15 105 H 15 148/62 H 97 12/11/20 22:00 103 H 24 98 12/11/20 21:45 100 H 19 115/80 94 12/11/20 21:30 111 H 22 97 awake alert and oriented x3 she is in no acute distress HEENT mildly reduced carotid upstrokes normal to carotid bruits Lungs: Clear to auscultation bilaterally no rales rhonchi or wheezing Heart: Irregular rate and rhythm no appreciable murmurs rubs or gallops her heart sounds were distant Abdomen: Soft nontender distended positive bowel sounds obese Extremities: No clubbing cyanosis or edema Psychiatric after appear appropriate Her EKG was reviewed as well as her chest x-ray and her laboratory studies IMPRESSIONS: 1. Atrial flutter with a rapid ventricular response (asymptomatic) 2. Chronic anticoagulation 3. History of cardiac catheterization in 2019 with mild coronary artery disease 4. Recent echocardiogram in the [facility] with low normal left ventricular systolic function 5. History of heart failure secondary to atrial flutter with a rapid ventricular response 6. Obstructive sleep apnea tolerating CPAP 7. History of PVC ablation in 2017 8. Hypertension 9. Hyperlipidemia In all likelihood she is having episodes of atrial fibrillation and/or atrial flutter at home and not recognizing it. Her heart rate was faster than usual yesterday likely due to the prep for her colonoscopy. She notes at home when she checks her blood pressure although her heart rate is not fast her machine is suggesting that she is having an arrhythmia as she describes "" 3 hearts ". Given the fact that she is asymptomatic with her atrial arrhythmias I would recommend a rate control strategy. She is already on anticoagulation with apixaban 5 mg twice daily. I would increase her diltiazem extended release to 300 mg daily. We will need to determine that her rates are controlled long-term she is not having tachybradycardia syndrome. She tried to wear an event recorder as an outpatient but after 3 days she had significant skin irritation. Possible with her pulse oximeter at home heart rate may be inaccurate as is not picking up her pulse adequately. We will have to determine a different mechanism to assess her rate control potentially with an alive core monitor. Clinically she is not having any heart failure. She had some chest discomfort with sounds like esophageal reflux yesterday as she was n.p.o. and notes she had a lot of belching. Her troponins are negative. There is no ischemic changes on her EKG. We will arrange for her to be seen in the office in the next couple of weeks. If the GI service plans to proceed with colonoscopy there is no reason that she cannot proceed from our standpoint. I believe she is at intermediate risk. I did discuss with her that GI will make a decision when she can restart her Eliquis understanding she will be therapeutic within 2 hours of taking the first dose.
[2020-12-12] MEDS: dilTIAZem HCL 120 MG CAPCR PO SCH ×2 (09:32→09:34)
[2020-12-12] MEDS ORDERED: dilTIAZem HCL 180 MG CAPCR PO ONE (09:45)
--- NOTE | 2020-12-12 09:48 | History & Physical Bridge Note ---
Date of Service December 12, 2020 History & Physical Bridge Note I have examined the patient, reviewed the History & Physical and in the interval since the performance of the History & Physical I have noted the following changes of clinical significance: Patient was admitted after found to be in afib with RVR during anesthesia eval for outpatient colonoscopy. She has seen cardiology who have cleared her to proceed with her colonoscopy. She is rate controlled at the time of my visit. Keep NPO & proceed with colonoscopy with Dr. Pate today.
--- NOTE | 2020-12-12 11:20 | Anesthesiology Consultation ---
Date of Service December 12, 2020 Assessment & Plan (1) Encounter for pre-operative examination: Chart Review Chart Review: Acceptable Risk for Surgery and Patient NOT seen in Pre Admission Testing Consults Requested none History Surgery Operation Date: 12/12/20 16:45 Proposed Procedures p Colonoscopy Dr. Rio Pate MD Height/Weight Height: 5 ft 3 in Weight: 117.1 kg Allergies Allergy/AdvReac Type Severity Reaction Status Date / Time bee venom protein (honey bee) Allergy Unknown Anaphylaxis Verified 12/11/20 14:06 Beta-Blockers AdvReac Unknown SLEEPINESS Verified 12/11/20 14:06 (Beta-Adrenergic [place]oc fentanyl AdvReac Unknown PROJECTILE Verified 12/11/20 14:06 VOMITING metoprolol AdvReac Unknown SLEEPINESS Verified 12/11/20 14:06 AND WEIGHT GAIN morphine AdvReac Unknown PROJECTILE Verified 12/11/20 14:06 VOMITING Medications Home Medications Medication Instructions Recorded Confirmed Last Taken acetaminophen 500 mg capsule 1,000 mg PO QAM 11/14/20 12/11/20 12/10/20 albuterol sulfate 90 mcg/actuation 2 inh INHALATION Q4H PRN #8.5 g 11/14/20 12/11/20 Unknown aerosol inhaler apixaban 5 mg tablet (Eliquis) 5 mg PO BID 11/14/20 12/11/20 12/07/20 ascorbate calcium (vitamin C) 500 500 mg PO DAILY 11/14/20 12/11/20 12/08/20 mg tablet aspirin 81 mg tablet,delayed 81 mg PO DAILY 11/14/20 12/11/20 12/10/20 release (Adult Aspirin Regimen) atorvastatin 10 mg tablet (Lipitor) 10 mg PO QAM 11/14/20 12/11/20 12/10/20 biotin 10,000 mcg capsule 10,000 mcg PO DAILY 11/14/20 12/11/20 12/08/20 cholecalciferol (vitamin D3) 125 125 mcg PO DAILY 11/14/20 12/11/20 12/08/20 mcg (5,000 unit) capsule furosemide 20 mg tablet 20 mg PO QAM 11/14/20 12/11/20 12/10/20 losartan 100 mg tablet 100 mg PO QAM 11/14/20 12/11/20 12/11/20 05:00 multivitamin (Daily Multi-Vitamin) 1 tab PO BID 11/14/20 12/11/20 12/08/20 umeclidinium 62.5 mcg/actuation 1 inh INHALATION DAILY #30 ea 11/14/20 12/11/20 Unknown blister powder for inhalation (Incruse Ellipta) cetirizine 10 mg capsule (Allergy 10 mg PO QAM 12/04/20 12/11/20 12/08/20 Relief (cetirizine)) diphenhydramine 25 2 tab PO HS 12/04/20 12/11/20 12/10/20 mg-acetaminophen 500 mg tablet (Tylenol PM Extra Strength) epinephrine 0.3 mg/0.3 mL 0.3 mg IM UD PRN 12/04/20 12/11/20 Unknown injection, auto-injector fluticasone 250 mcg-salmeterol 50 1 inh INHALATION BID 12/04/20 12/11/20 12/11/20 mcg/dose blistr powdr for inhalation (Advair Diskus) melatonin 1 mg chewable tablet 10 mg PO HS 12/04/20 12/11/20 12/10/20 potassium chloride 10 mEq 10 meq PO QAM 12/04/20 12/11/20 12/10/20 capsule,extended release sodium,potassium,mag sulfates 17.5 177 ml PO UD PRN 12/04/20 12/11/20 12/11/20 05:00 gram-3.13 gram-1.6 gram oral soln (Suprep Bowel Prep Kit) diltiazem HCl 120 mg 120 mg PO QAM 12/11/20 12/11/20 Unknown capsule,extended release 24 hr Active Medications Generic Name Dose Route Start Last Admin Trade Name Freq PRN Reason Stop Dose Admin Acetaminophen 1,000 mg 12/12/20 09:00 12/12/20 09:28 Acetaminophen 500 Mg Tab PO 01/11/21 08:59 Not Given QAM KAUR Atorvastatin Calcium 10 mg 12/12/20 09:00 12/12/20 09:26 Atorvastatin 10 Mg Tab PO 01/11/21 08:59 10 mg QAM KAUR Administration Cetirizine HCl 10 mg 12/12/20 09:00 12/12/20 09:26 Cetirizine Hcl 10 Mg Tablet PO 01/11/21 08:59 10 mg QAM KAUR Administration Fluticasone/Vilanterol 1 puffs 12/12/20 09:00 12/12/20 09:31 Fluticasone/Vilanterol 100/25mcg 14 Puffs/Inhaler INH 01/11/21 08:59 Not Given DAILY KAUR Protocol Losartan Potassium 100 mg 12/12/20 09:00 12/12/20 09:27 Losartan Potassium 50 Mg Tab PO 01/11/21 08:59 100 mg QAM KAUR Administration Umeclidinium [place] 1 puffs 12/12/20 09:00 12/12/20 09:43 Umeclidinium [place] 62.5mcg/Blister 7 Puffs/Inhaler INH 01/11/21 08:59 1 puffs DAILY KAUR Administration Past Medical History Medical History (Updated 12/12/20 @ 11:21 by Luis Clancy MD) Arthritis COPD (chronic obstructive pulmonary disease) DX 2008 Encounter for pre-operative examination Grief counseling PARENTS BOTH WITHIN LAST YR Heart failure DX 2008 History of atrial flutter History of colon polyps HTN (hypertension) Low back problem ARTHRITIS Sleep apnea CPAP WITHOUT HUMIDIFIER SOB (shortness of breath) on exertion Case postponed from yesterday for a flutter with RVR. Admitted. Receiving diltiazem. Rate better today but still around 100 upon arriving to preop endo. Past Family History Family History Father Family history of esophageal cancer Other Family history of colon cancer Family history of stomach cancer Past Surgical History Surgical History History of cardiac cath 2019 - PRIOR TO CATARACT SX, DIDN'T PASS PHYSICAL EXAM - FOUND BLOCKAGE - NO STENT(S) 2008 - DX HEART FAILURE - FOUND BLOCKAGE - NO STENT(S) History of cardioversion History of colonoscopy History of laminectomy CERVICAL - LIMITED ROM History of left cataract surgery Social History Smoking Status: Never smoker tobacco type: cigarettes Smoking cigarettes per day: 20 Hx Alcohol Use: Yes (I MIGHT HAVE 3 DRINKS A YR) alcohol intake frequency: holidays/special occasions only Hx Substance Use: No substance use type: does not use Physical Exam Vital Signs Last Vital Signs Temp 36.7 C 12/12/20 10:56 Pulse 92 H 12/12/20 10:56 Resp 20 12/12/20 10:56 BP 129/73 12/12/20 10:56 Pulse Ox 93 12/12/20 10:56 Testing Laboratory Results 12/12/20 05:42 12/12/20 05:42 PT 11.0 Seconds (9.0-12.0) 12/11/20 Unknown INR 1.1 (0.9-1.1) 12/11/20 Unknown Electrocardiogram Date: 12/11/20 DICTATED BY:Abel Aguillon MD Test Reason : Blood Pressure : / mmHG Vent. Rate : 101 BPM Atrial Rate : 359 BPM P-R Int : 000 ms QRS Dur : 080 ms QT Int : 354 ms P-R-T Axes : 000 052 015 degrees QTc Int : 459 ms Atrial fibrillation with rapid ventricular response Septal infarct , age undetermined Abnormal ECG When compared with ECG of 11-DEC-2020 14:24, No significant change Confirmed by Abel Aguillon ([id number]) on 12/12/2020 7:54:49 AM Chest X-Ray Date: 12/11/20 XR chest 1V portable HISTORY: 70 years-old Female afib acute atrial fibrillation COMPARISON: Chest CT 10/14/2020 TECHNIQUE: Portable AP view of the chest FINDINGS: Cardiac silhouette is mildly enlarged. Calcified plaque of the thoracic aorta. Suggestion of mild emphysema. Mild chronic interstitial coarsening. No pneumothorax, pleural effusion, airspace consolidation or overt pulmonary edema. No acute fracture. Left shoulder rotator cuff calcific tendinosis. Degenerative changes of the shoulders and spine. IMPRESSION: No acute process.
[2020-12-12] MEDS ORDERED: LIDOCAINE 2% 2 ML VIAL/AMP(20MG/ML) INFIL ONE (11:46)
[2020-12-12] MEDS ORDERED: PROPOFOL IV EMULSION 10 MG/ML 20 ML VIAL IV ONE ×2 (11:46→12:16)
--- NOTE | 2020-12-12 12:19 | GI REPORT ---
Patient Name: Wendy Robles Procedure Date: 12/12/2020 11:53 AM Date of : 1950 Admit Type: Inpatient Age: 70 Gender: Female Attending MD: Rosalio Pate MD Procedure: Colonoscopy Providers: Rosalio Pate MD Referring MD: Denzel Henry Indications: Screening for colorectal malignant neoplasm Medicines: Monitored Anesthesia Care Complications: No immediate complications. Estimated blood loss: None. Estimated Blood Loss: Estimated blood loss: none. Procedure: Pre-Anesthesia Assessment: - Prior Anticoagulants: The patient has taken no previous anticoagulant or antiplatelet agents. - ASA Grade Assessment: II - A patient with mild systemic disease. After I obtained informed consent, the scope was passed under direct vision. Throughout the procedure, the patient's blood pressure, pulse, and oxygen saturations were monitored continuously. The scope was introduced through the anus and advanced to the cecum, identified by appendiceal orifice and ileocecal valve. The colonoscopy was performed without difficulty. The patient tolerated the procedure well. The quality of the bowel preparation was poor. Findings: A 3 mm polyp was found in the sigmoid colon. The polyp was sessile. The polyp was removed with a cold snare. Resection and retrieval were complete. Estimated blood loss: none. To prevent bleeding after the polypectomy, one hemostatic clip was successfully placed. There was no bleeding at the end of the procedure. Multiple small and large-mouthed diverticula were found in the sigmoid colon and descending colon. Non-bleeding external hemorrhoids were found. The hemorrhoids were small. Impression: - Preparation of the colon was poor. - One 3 mm polyp in the sigmoid colon, removed with a cold snare. Resected and retrieved. - Diverticulosis in the sigmoid colon and in the descending colon. - Non-bleeding external hemorrhoids. Recommendation: - Resume previous diet today. - Await pathology results. - [facility]. Rosalio Pate MD 12/12/2020 12:18:58 PM This report has been signed electronically. Note Initiated On: 12/12/2020 11:53 AM Number of Addenda: 0 I attest to the content of the Intraoperative Record and orders documented therein, exceptions below {[id number]}
--- NOTE | 2020-12-12 14:18 | Anesthesiology Progress Note ---
Date of Service December 12, 2020 Anesthesia Post Procedure Vital Signs Vital Signs: Temp Pulse Pulse Resp BP BP Pulse Ox 12/12/20 12:49 77 16 158/75 H 97 12/12/20 12:34 87 16 155/78 H 95 12/12/20 12:19 93 H 16 138/84 95 12/12/20 11:30 92 H 20 161/95 H 12/12/20 11:26 36.4 C L 103 H 20 153/124 H 97 12/12/20 10:56 36.7 C 92 H 20 129/73 93 12/12/20 07:46 97 H 12/12/20 07:41 36.5 C 102 H 20 141/76 H 93 12/12/20 04:16 36.4 C L 88 16 128/66 96 12/12/20 01:11 117 H 12/12/20 00:36 36.4 C L 107 H 16 154/67 H 97 12/11/20 22:15 105 H 15 148/62 H 97 12/11/20 22:00 103 H 24 98 12/11/20 21:45 100 H 19 115/80 94 12/11/20 21:30 111 H 22 97 12/11/20 21:15 101 H 20 113/68 95 12/11/20 21:00 105 H 21 96 12/11/20 20:45 106 H 22 160/79 H 96 12/11/20 20:30 110 H 21 130/69 96 12/11/20 20:15 108 H 22 109/56 L 97 12/11/20 20:00 103 H 23 12/11/20 19:45 131 H 17 97 12/11/20 19:30 101 H 21 97 12/11/20 19:15 103 H 22 164/92 H 96 12/11/20 19:00 113 H 21 161/76 H 97 12/11/20 18:45 114 H 31 H 96 12/11/20 18:30 99 H 19 132/83 96 12/11/20 18:15 116 H 120 H 29 H 148/82 H 99 12/11/20 18:00 109 H 16 148/82 H 96 12/11/20 17:45 113 H 15 143/87 H 99 12/11/20 17:30 124 H 17 12/11/20 17:15 128 H 22 99 12/11/20 17:11 124 H 15 160/111 H 93 12/11/20 17:00 116 H 19 96 12/11/20 16:45 122 H 21 183/77 H 98 12/11/20 16:30 109 H 16 163/104 H 98 12/11/20 16:15 96 H 15 97 12/11/20 16:00 89 14 149/88 H 98 12/11/20 15:49 100 H 19 131/98 99 12/11/20 15:45 111 H 17 172/125 H 98 12/11/20 15:30 93 H 27 H 96 12/11/20 15:25 117 H 24 150/99 H 96 12/11/20 15:15 135 H 24 157/101 H 97 12/11/20 15:02 132 H 14 143/106 H 97 12/11/20 14:55 132 H 19 143/106 H 98 Transfer of Care Handoff Completed per policy Notes Mental Status: alert / awake / arousable and participated in evaluation Patient Amnestic to Procedure: Yes Nausea / Vomiting: adequately controlled Pain: adequately controlled Airway Patency, RR, SpO2: stable & adequate BP & HR: stable & adequate Hydration State: stable & adequate Anesthetic Complications: no major complications apparent and Pt Satisfied with anesthetic care
--- NOTE | 2020-12-12 15:12 | Discharge Summary ---
Date of Service December 12, 2020 Admission HPI Per Admitting Provider 70 YOF with past medical history of: HTN, CHF, COPD, CAD with cardiac cath (30- 40% CX, 20% prox LAD, 10-15% luminal change to left main, LVEDP 12mm), aflutter/afib with cardioversion in 2008/2012, with septal ablation in 2014), manic/depressive episode 2001, COPD. Patient was recently started on Eliquis and Cardizem for her Afib/flutter. She has recently transitioned her care to this area to include her PCP([facility]), Cardiology ([facility]), and Pulmonary [facility]. Patient was coming in today for routine Colonoscopy following bowel prep overnight and holding her Eliquis for 72 hours. Upon check in she was noted to have HR 150s-170s she was then referred to the EMD. In the EMD she had an ECG done and CXR and routine labs to include Troponin I. Her troponin I was negative and her electrolytes including MG are within acceptable cardiac ranges. She received 1 liter of saline and Diltiazem 10mg IV x2 with decrease in her HR to 90-110s. Upon my evaluation she was having some substernal tightness in her chest- she was unsure if this was pressure or her patricia so she received 1 nitroglycerin SL, she was also given 60mg of oral Cardizem immediate release for HR 110-120s. Patient also endorses that she is anxious about getting her colonoscopy and helping her daughter at home with medical diagnoses. Patient will be admitted for rate control, hemodynamic monitoring, trending of ECG and Troponin I, clears until midnight and re-attempt at colonoscopy tomorrow pending stability overnight. Cardiology consulted for further evaluation and assistance if needed for her rate control and chest tightness. Her COVID test on admission: NEGATIVE Admission Exam Per Admitting Provider General: awake, alert, no apparent distress Head: Normocephalic, atraumatic ENT: PERRL, EOMI, no pharyngeal exudate, mucous membranes moist Neuro: AAO x 3, speech clear and appropriate, strength intact bilaterally 5/5, sensation intact and equal all extremities and dermatomes, no pronator drift Chest: equal rise and fall of the chest, no accessory muscle use, no heaves or thrills, decreased in bases, on room air, Cardiac: chest tightness not reproducible substernal, no change with inspiration or with movement, irregular rate and rhythm, telemetry reviewed- aflutter, skin warm dry, cap refill <3 seconds, peripheral pulses +2 no JVD, no murmur, no edema GI: NABS x 4 quadrants, soft, nontender to palpation, no rebound, guarding or tenderness : Spontaneously voiding, no pain, no CVA tenderness, Extremities: Normal inspection, no peripheral edema or erythema, calfs nontender to palpation Psych: Normal mood and affect Skin: no rash or erythema Principal Diagnosis AFlutter w/ RVR, now with CVR Discharge Exam Vital Signs Temp Pulse Pulse Resp BP BP Pulse Ox 12/12/20 14:51 36.4 C L 85 20 147/84 H 96 12/12/20 14:38 36.4 C L 85 20 147/84 H 96 12/12/20 12:49 77 16 158/75 H 97 12/12/20 12:34 87 16 155/78 H 95 12/12/20 12:19 93 H 16 138/84 95 12/12/20 11:30 92 H 20 161/95 H 12/12/20 11:26 36.4 C L 103 H 20 153/124 H 97 12/12/20 10:56 36.7 C 92 H 20 129/73 93 12/12/20 07:46 97 H 12/12/20 07:41 36.5 C 102 H 20 141/76 H 93 12/12/20 04:16 36.4 C L 88 16 128/66 96 12/12/20 01:11 117 H 12/12/20 00:36 36.4 C L 107 H 16 154/67 H 97 12/11/20 22:15 105 H 15 148/62 H 97 12/11/20 22:00 103 H 24 98 12/11/20 21:45 100 H 19 115/80 94 12/11/20 21:30 111 H 22 97 12/11/20 21:15 101 H 20 113/68 95 12/11/20 21:00 105 H 21 96 12/11/20 20:45 106 H 22 160/79 H 96 12/11/20 20:30 110 H 21 130/69 96 12/11/20 20:15 108 H 22 109/56 L 97 12/11/20 20:00 103 H 23 12/11/20 19:45 131 H 17 97 12/11/20 19:30 101 H 21 97 12/11/20 19:15 103 H 22 164/92 H 96 12/11/20 19:00 113 H 21 161/76 H 97 12/11/20 18:45 114 H 31 H 96 12/11/20 18:30 99 H 19 132/83 96 12/11/20 18:15 116 H 120 H 29 H 148/82 H 99 12/11/20 18:00 109 H 16 148/82 H 96 12/11/20 17:45 113 H 15 143/87 H 99 12/11/20 17:30 124 H 17 12/11/20 17:15 128 H 22 99 12/11/20 17:11 124 H 15 160/111 H 93 12/11/20 17:00 116 H 19 96 12/11/20 16:45 122 H 21 183/77 H 98 12/11/20 16:30 109 H 16 163/104 H 98 12/11/20 16:15 96 H 15 97 12/11/20 16:00 89 14 149/88 H 98 12/11/20 15:49 100 H 19 131/98 99 12/11/20 15:45 111 H 17 172/125 H 98 12/11/20 15:30 93 H 27 H 96 12/11/20 15:25 117 H 24 150/99 H 96 12/11/20 15:15 135 H 24 157/101 H 97 Intake and Output 12/12/20 12/12/20 12/12/20 06:59 14:59 22:59 Intake Total 1000 / 1000 Balance 1000 / 1000 Intake: IV 1000 / 1000 Lactated Ringer's 1,000 ml @ 1000 / 1000 100 mls/hr IV .Q10H ONE Rx#: [id number] Other: Other Intake Source npo Weight 117.1 kg 117.1 kg Weight Measurement Method Built in [facility] Patient Weight 12/13/20 06:59 Weight 117.1 kg GENERAL: 70 obese pleasant WF. NAD. LUNGS: Clear to auscultation bilaterally. No accessory muscle use. No W/R/R. CARDIOVASCULAR: Irregularly irregular. No M/G/R. No JVD. ABDOMEN: Soft, non-tender and non-distended. No palpable masses. Bowel sounds normoactive x 4 quad. EXTREMITIES: No edema. Non-tender. Peripheral pulses +2/4. NEUROLOGIC: A&O x3. PSYCHIATRIC: Cooperative. Appropriate mood and affect. SKIN: Warm, dry, intact. No rashes or lesions. Discharge Data Allergies Allergy/AdvReac Type Severity Reaction Status Date / Time bee venom protein (honey bee) Allergy Unknown Anaphylaxis Verified 12/11/20 14:06 Beta-Blockers AdvReac Unknown SLEEPINESS Verified 12/11/20 14:06 (Beta-Adrenergic Bloc fentanyl AdvReac Unknown PROJECTILE Verified 12/11/20 14:06 VOMITING metoprolol AdvReac Unknown SLEEPINESS Verified 12/11/20 14:06 AND WEIGHT GAIN morphine AdvReac Unknown PROJECTILE Verified 12/11/20 14:06 VOMITING Consultations Cardiology consulted due to Aflutter w/ RVR -- seen by Dr. Brown, appreciate his recommendations. Advised uptitration of her Cardizem CD to 300mg daily and will follow as outpatient. Procedures Performed Operation Date: 12/12/20 16:45 Actual Procedures p Colonoscopy Polypectomy - Rosalio Pate MD Ordered Studies Laboratory Results - last 24 hr 12/11/20 12/11/20 12/11/20 18:42 18:42 Unknown WBC 7.52 RBC 5.06 Hgb 15.4 Hct 47.0 MCV 92.9 MCH 30.4 MCHC 32.8 RDW Std Deviation 44.4 RDW Coeff of Andrea 13.1 Plt Count 268 MPV 10.9 H Immature Gran % (Auto) 0.1 Neut % (Auto) 57.6 Lymph % (Auto) 32.7 Carroll % (Auto) 6.4 Eos % (Auto) 2.5 Baso % (Auto) 0.7 Neut # (Auto) 4.33 Lymph # (Auto) 2.46 Carroll # (Auto) 0.48 Eos # (Auto) 0.19 Baso # (Auto) 0.05 Immature Gran # (Auto) 0.01 PT INR Sodium Potassium Chloride Carbon Dioxide Anion Gap BUN Creatinine Est Cr Clr Drug Dosing Est GFR ( Amer) Est GFR (Non-Af Amer) BUN/Creatinine Ratio Glucose Calcium Magnesium Troponin I COVID-19 Eval Order Covid19 at [facility] SARS-CoV-2 (PCR) NEGATIVE 12/11/20 12/11/20 12/12/20 Unknown Unknown 00:02 WBC RBC Hgb Hct MCV MCH MCHC RDW Std Deviation RDW Coeff of Andrea Plt Count MPV Immature Gran % (Auto) Neut % (Auto) Lymph % (Auto) Carroll % (Auto) Eos % (Auto) Baso % (Auto) Neut # (Auto) Lymph # (Auto) Carroll # (Auto) Eos # (Auto) Baso # (Auto) Immature Gran # (Auto) PT 11.0 INR 1.1 Sodium 138 Potassium 4.0 Chloride 105 Carbon Dioxide 26 Anion Gap 7.0 BUN 12 Creatinine 0.77 Est Cr Clr Drug Dosing 82.8 Est GFR ( Amer) 90.0 Est GFR (Non-Af Amer) 77.7 BUN/Creatinine Ratio 15.3 Glucose 106 H Calcium 9.6 Magnesium 2.6 H Troponin I < 0.015 < 0.015 COVID-19 Eval Order SARS-CoV-2 (PCR) 12/12/20 12/12/20 12/12/20 05:42 05:42 05:42 WBC 7.25 RBC 4.86 Hgb 14.8 Hct 44.8 MCV 92.2 MCH 30.5 MCHC 33.0 RDW Std Deviation 43.5 RDW Coeff of Andrea 12.9 Plt Count 251 MPV 10.9 H Immature Gran % (Auto) 0.1 Neut % (Auto) 60.3 Lymph % (Auto) 30.8 Carroll % (Auto) 5.9 Eos % (Auto) 2.3 Baso % (Auto) 0.6 Neut # (Auto) 4.37 Lymph # (Auto) 2.23 Carroll # (Auto) 0.43 Eos # (Auto) 0.17 Baso # (Auto) 0.04 Immature Gran # (Auto) 0.01 PT INR Sodium 137 Potassium 3.7 Chloride 107 Carbon Dioxide 23 Anion Gap 7.0 BUN 9 Creatinine 0.59 L Est Cr Clr Drug Dosing 108.1 Est GFR ( Amer) 106.9 Est GFR (Non-Af Amer) 92.2 BUN/Creatinine Ratio 15.1 Glucose 113 H Calcium 8.9 Magnesium 2.3 Troponin I < 0.015 COVID-19 Eval Order SARS-CoV-2 (PCR) Hospital Course (1) Atrial flutter: Afib/Aflutter- predominantly atrial flutter at this time, no ectopy- acute RVR- ECG in September 27 was NSR. RVR likely induced from bowel prep. Responded to IV Diltiazem in ED. She was continued on Diltiazem CD 120mg and given an additional dose of short acting PO Cardizem 60mg x1 yesterday evening. PRN Dilt ordered for HR >[address] Mag 2.4 K 4.0. Resume Eliquis per GI instructions (either this evening or tomorrow AM). Pt seen by Dr. Brown, advised rate control strategy with increase of Diltiazem to 300mg daily. Patient has been rate controlled all morning. [place] she was able to proceed safely for her colonoscopy. Underwent procedure, tolerated well. Following procedure, HR remains controlled. Pt requesting to be discharged as she has a daughter with Down's Syndrome at home and is her primary caregiver. See no contraindication to discharge given her HR stability. (2) Chest discomfort: Chest pressure- unsure if cause is related to pressure from her brassiere vs. reflux vs. anxiety related to her procedure. Relieved with 1 NTG SL. Troponins trended and have been negative. No ischemic changes noted on EKG. (3) CAD (coronary artery disease): 30-40% CX, 20% prox LAD, 10-15% luminal change to left main. Continue Dilt- previous intolerance to BB. Continue ASA and Atorvastatin 10mg. (4) Heart failure: HFpEF- Grade I diastolic dysfunction. Lasix held overnight and received LR for hypovolemia related to bowel prep. Can resume upon discharge as prescribed prior to hospitalization. ECHO 10/28- EF 55%, Mild cocentric LV, no RWMA. (5) COPD with emphysema: COPD B/C - continued on albuterol and Incruse. PFTs not available- will be performed at next pulm visit from recent Note in Nov 27 (6) HLD (hyperlipidemia): As above (7) DIANDRA (obstructive sleep apnea): Does not wear CPAP as her machine was recalled and deferred use here (8) Morbid obesity: Would benefit from weight loss to reduce pulmonary and cardiac morbidity in the halfway. Advise diet and exericse. BMI 45 Patient is medically and hemodynamically stable for discharge home today with outpatient follow up with her family doctor and cardiology. Total Time Total Time Spent Total Time Spent (In Minutes): Less than 30 minutes. Discharge Plan Discharge Items Patient Disposition: Home - Self-Care Reason For Visit: AFIB WITH RVR Discharge Diagnosis: AFib w/ RVR now with CVR Activity: Resume your previous activity Non-emergency contact: Primary Care Provider and Shot Examiner Call non-emergency contact if: you have any medication questions Follow-up/Referrals: Juan Brown DO [Physician] - (Within 1 week of discharge) Amy Giordano MD [Primary Care Provider] - (Please call your primary care office and make a hospital follow up appointment. ) Diet: Heart Healthy Addtl Attending Provider Instructions: 1. Take all medications as directed. 2. Note change in your Diltiazem from 120mg daily to 300mg daily. 3. Follow up with your PCP within 1 week of discharge. 4. Follow up with Dr. Brown within 1 week of discharge. Pending Studies at Discharge: No Stand-Alone Forms: My [email or web address], Smoking Cessation Medications and DC Order Prescriptions: New diltiazem HCl [Cardizem CD] 300 mg Capsule,Extended Release 24hr 300 mg PO QAM Qty: 30 RF: 0 Continued losartan 100 mg tablet 100 mg PO QAM RF: 0 Eliquis 5 mg tablet 5 mg PO BID RF: 0 atorvastatin [Lipitor] 10 mg tablet 10 mg PO QAM RF: 0 furosemide 20 mg tablet 20 mg PO QAM RF: 0 aspirin [Adult Aspirin Regimen] 81 mg tablet,delayed release (DR/EC) 81 mg PO DAILY RF: 0 biotin 10,000 mcg capsule 10,000 mcg PO DAILY RF: 0 acetaminophen 500 mg capsule 1,000 mg PO QAM RF: 0 cholecalciferol (vitamin D3) 125 mcg (5,000 unit) capsule 125 mcg PO DAILY RF: 0 multivitamin [Daily Multi-Vitamin] Tablet 1 tab PO BID RF: 0 ascorbate calcium (vitamin C) 500 mg tablet 500 mg PO DAILY RF: 0 albuterol sulfate 90 mcg/actuation HFA aerosol inhaler 2 inh inhalation Q4H PRN (Reason: shortness of breath or wheezing) Qty: 8.5 RF: 3 Incruse Ellipta 62.5 mcg/actuation blister with device 1 inh inhalation DAILY Qty: 30 RF: 3 fluticasone propion-salmeterol [Advair Diskus] 250-50 mcg/dose Blister With Device 1 inh INHALATION BID RF: 0 potassium chloride 10 mEq Capsule, Extended Release 10 meq PO QAM RF: 0 diphenhydramine-acetaminophen [Tylenol PM Extra Strength] 25-500 mg Tablet 2 tab PO HS RF: 0 Allergy Relief (cetirizine) 10 mg Capsule 10 mg PO QAM RF: 0 melatonin 1 mg Tablet,Chewable 10 mg PO HS RF: 0 epinephrine 0.3 mg/0.3 mL Auto-Injector 0.3 mg IM UD PRN (Reason: ANAPHYLAXIS ) RF: 0 Discontinued diltiazem HCl 120 mg capsule,extended release 24hr 120 mg PO QAM RF: 0 Suprep Bowel Prep Kit 17.5-3.13-1.6 gram recon soln 177 ml PO UD PRN (Reason: COLONOSCOPY PREP) RF: 0 Discharge Orders: Discharge Order (Routine); Ordered 12/12/20 Ordered By: Zoila Rob Admission Data Admit Date/Time: 12/11/20 17:31 Attending Provider: Denzel Henry Admit Provider: Alton Vicente Primary Care Provider: Amy Giordano Other Providers: Alton Vicente ; Juan Brown Other Interventions: Discharge Summary Assessment (RN) Last Done: 12/12/20 14:51 Coding Level of Care Code 59223 OBS Care - Discharge Diagnoses Atrial flutter I48.92 Chest discomfort R07.89 CAD (coronary artery disease) I25.10 Heart failure I50.9 COPD with emphysema J43.9 HLD (hyperlipidemia) E78.5 DIANDRA (obstructive sleep apnea) G47.33 Morbid obesity E66.01
[2020-12-13] MEDS ORDERED: dilTIAZem HCL 300 MG CAPCR PO SCH (09:00)
== END 2020-12-12 15:22 | disposition home or self-care (01) ==
LOC: ED 14:50 → 2W 17:31 → SUATTDRO 17:31 → INTOOBSV 17:31 → 2W 22:25